=== PATIENT | male | born 1935 | race Native Hawaiian/Other Pacific Islander ===

== ENCOUNTER 2018-05-09 11:24 | Outpatient (CLI) | payer OTHER ==
[2018-05-09 12:35] LABS: PLATELET COUNT 152 K/uL (142-355)
[2018-05-09 13:24] LABS: POTASSIUM 4.6 mmol/L (3.6-5.2)
== END 2018-05-09 19:11 | disposition home or self-care (01) ==
LOC: LABW 11:24
PROVIDERS: Internal Medicine
DX: D64.9 Anemia, unspecified (principal); I10 Essential (primary) hypertension; E11.9 Type 2 diabetes mellitus without complications; E78.00 Pure hypercholesterolemia, unspecified
CPT/HCPCS: 36415; 80053; 80061; 81000; 82043; 82570; 82607; 82728; 82747; 83036; 83540; 83550; 84439; 84443; 85027

== ENCOUNTER 2018-11-15 13:21 | Outpatient (CLI) | payer OTHER ==
[2018-11-15] MEDS ORDERED: VITAMIN D31000 UNIT PO (14:11)
[2018-11-15] MEDS ORDERED: METFTAB PO (14:11)
[2018-11-15] MEDS ORDERED: ELIQUIS5 MG PO (14:12)
[2018-11-15] MEDS ORDERED: CARV12.5 PO (14:12)
[2018-11-15] MEDS ORDERED: ONE DAILY 5050 PLUS PO (14:13)
[2018-11-15] MEDS ORDERED: ZOLOFT25 MG PO (14:14)
[2018-11-15] MEDS ORDERED: FERROUS SULF325 MG PO (14:14)
[2018-11-15] MEDS ORDERED: NITROGLYCERIN0.4 MG SL (14:16)
== END 2018-11-15 13:24 | disposition short-term general hospital (02) ==
LOC: AMB 13:21
DX: R51 Headache (principal); R29.810 Facial weakness; R47.81 Slurred speech
CPT/HCPCS: A0425; A0427

== ENCOUNTER 2018-11-18 16:22 | Inpatient (IN) | payer OTHER ==
[~2018-11-18] VITALS: Ht 182.9 cm; Wt 76.7 kg
[~2018-11-18 16:22] MED LIST: CARV12.5 PO; ELIQUIS5 MG PO; FERROUS SULF325 MG PO; METFTAB PO; NITROGLYCERIN0.4 MG SL; ONE DAILY 5050 PLUS PO; VITAMIN D31000 UNIT PO; ZOLOFT25 MG PO
[2018-11-18 17:03] LABS: PLATELET COUNT 173 K/uL (142-355)
[2018-11-18 17:40] LABS: PARTIAL THROMBOPLASTIN TIME 25.1 SECONDS (24.5-33.6)
[2018-11-18 18:23] VITALS: BP 143/60; TEMP 98.7; Ht 182.9 cm; Wt 76.7 kg
[2018-11-18 20:00] VITALS: BP 137/71; TEMP 98.1
[2018-11-19] VITALS: BP 112/44; TEMP 97.7
[2018-11-19 03:55] VITALS: BP 116/55; TEMP 98.1
[2018-11-19 08:03] VITALS: BP 107/56; TEMP 97.5
[2018-11-19 08:53] LABS: PLATELET COUNT 139 K/uL (142-355)
[2018-11-19 09:10] LABS: POTASSIUM 4.4 mmol/L (3.6-5.2)
[2018-11-19 12:06] VITALS: BP 145/62; TEMP 98.1
[2018-11-19 16:19] VITALS: BP 137/66; TEMP 98.7
[2018-11-19 20:10] VITALS: BP 130/49; TEMP 98
[2018-11-20 00:19] VITALS: BP 135/58; TEMP 98.6
[2018-11-20 04:00] VITALS: BP 135/59; TEMP 99.2
[2018-11-20 05:12] LABS: PLATELET COUNT 143 K/uL (142-355)
[2018-11-20 05:21] LABS: POTASSIUM 4.4 mmol/L (3.6-5.2)
[2018-11-20 07:21] VITALS: BP 127/61; TEMP 97.7
[2018-11-20 12:00] VITALS: BP 143/64; TEMP 98.2
[2018-11-20 16:00] VITALS: BP 142/62; TEMP 98.5
[2018-11-20 20:00] VITALS: BP 127/64; TEMP 98.1
[2018-11-21] VITALS (7 sets, daily range): BP systolic 117–154; BP diastolic 53–70; TEMP 97.3–98.8
[2018-11-22 04:00] VITALS: BP 143/63; TEMP 98
[2018-11-22 08:00] VITALS: BP 156/74; TEMP 98.1
[2018-11-22 12:00] VITALS: BP 147/60; TEMP 98.5
== END 2018-11-22 15:08 | disposition swing bed (61) | DRG 69 ==
LOC: MED/SURG 16:22
PROVIDERS: ADMIT Internal Medicine
DX: G45.8 Other transient cerebral ischemic attacks and related syndromes (principal); G92 Toxic encephalopathy; I48.2 Chronic atrial fibrillation; Z79.01 Long term (current) use of anticoagulants; Z86.73 Personal history of transient ischemic attack (TIA), and cerebral infarction without residual deficits; I11.0 Hypertensive heart disease with heart failure; I50.9 Heart failure, unspecified; E11.9 Type 2 diabetes mellitus without complications; M62.81 Muscle weakness (generalized); R62.7 Adult failure to thrive; R26.89 Other abnormalities of gait and mobility; D50.8 Other iron deficiency anemias; R00.1 Bradycardia, unspecified
CPT/HCPCS: 36415; 80048; 80053; 81000; 85027; 85610; 85730; J1815

== ENCOUNTER 2018-11-22 15:08 | Inpatient (IN) | payer OTHER ==
[~2018-11-22] VITALS: Ht 182.9 cm; Wt 79.8 kg
[2018-11-22 16:27] VITALS: BP 143/58; TEMP 98.7; Ht 182.9 cm; Wt 79.8 kg
[2018-11-22 19:38] VITALS: BP 154/71; TEMP 98.4
[2018-11-23 08:00] VITALS: BP 150/65; TEMP 98.5
[2018-11-23 20:00] VITALS: BP 164/74; TEMP 98.1
[2018-11-24 08:00] VITALS: BP 150/68; TEMP 97.6
[2018-11-24 20:00] VITALS: BP 155/71; TEMP 97.9
[2018-11-25 08:04] VITALS: BP 165/76; TEMP 97.9
[2018-11-25 19:46] VITALS: BP 144/73; TEMP 98
[2018-11-26 08:00] VITALS: BP 136/70; TEMP 97.8
[2018-11-26 19:57] VITALS: BP 152/68; TEMP 98.3
[2018-11-27 08:00] VITALS: BP 145/67; TEMP 98
[2018-11-27 19:32] VITALS: BP 153/72; TEMP 97.9
[2018-11-28 08:00] VITALS: BP 150/70; TEMP 97.3
[2018-11-28 20:00] VITALS: BP 182/74; TEMP 97.9
[2018-11-29 08:00] VITALS: BP 142/69; TEMP 98.1
[2018-11-29 20:00] VITALS: BP 144/69; TEMP 98.1
[2018-11-30 08:00] VITALS: BP 137/70; TEMP 98
[2018-11-30 20:07] VITALS: BP 143/65; TEMP 98.3
[2018-12-01 08:00] VITALS: BP 140/96; TEMP 98
[2018-12-01 19:43] VITALS: BP 108/78; TEMP 97.3
[2018-12-02 08:00] VITALS: BP 145/79; TEMP 98.3
[2018-12-02 20:00] VITALS: BP 129/65; TEMP 98.2
[2018-12-03 08:00] VITALS: BP 147/67; TEMP 98.2
[2018-12-03 20:00] VITALS: BP 143/67; TEMP 98.2
[2018-12-04 08:00] VITALS: BP 134/65; TEMP 98.5
[2018-12-04 20:00] VITALS: BP 141/55; TEMP 98.1
[2018-12-05 08:00] VITALS: BP 149/65; TEMP 98
[2018-12-05 20:00] VITALS: BP 150/47; TEMP 97.9
[2018-12-06 08:00] VITALS: BP 119/52; TEMP 98.4
[2018-12-06 20:00] VITALS: BP 131/59; TEMP 97.8
[2018-12-07 08:00] VITALS: BP 130/51; TEMP 98.3
[2018-12-07 20:01] VITALS: BP 126/51; TEMP 98
[2018-12-08 08:00] VITALS: BP 132/61; TEMP 97.4
[2018-12-08 20:02] VITALS: BP 109/55; TEMP 97.7
[2018-12-09 08:00] VITALS: BP 137/65; TEMP 97.7
[2018-12-09 20:00] VITALS: BP 106/39; TEMP 97.3
[2018-12-10 08:00] VITALS: BP 129/67; TEMP 97.7
== END 2018-12-10 10:20 | disposition home health service (06) | DRG 556 ==
LOC: MED/SURG 15:08
PROVIDERS: ADMIT Internal Medicine
DX: M62.81 Muscle weakness (generalized) (principal); I48.91 Unspecified atrial fibrillation; Z86.73 Personal history of transient ischemic attack (TIA), and cerebral infarction without residual deficits; I10 Essential (primary) hypertension; E11.9 Type 2 diabetes mellitus without complications; I50.9 Heart failure, unspecified; M15.8 Other polyosteoarthritis; D50.8 Other iron deficiency anemias; Z89.512 Acquired absence of left leg below knee; L98.8 Other specified disorders of the skin and subcutaneous tissue; F01.50 Vascular dementia, unspecified severity, without behavioral disturbance, psychotic disturbance, mood disturbance, and anxiety
CPT/HCPCS: 81000; 93005

== ENCOUNTER 2018-12-21 10:17 | Outpatient (CLI) | payer OTHER ==
[2018-12-21 10:35] LABS: PLATELET COUNT 190 K/uL (142-355)
[2018-12-21 10:53] LABS: POTASSIUM 4.5 mmol/L (3.6-5.2)
== END 2018-12-21 22:17 | disposition home or self-care (01) ==
LOC: LAB 10:17
PROVIDERS: Internal Medicine
DX: I11.0 Hypertensive heart disease with heart failure (principal); I50.9 Heart failure, unspecified; E11.69 Type 2 diabetes mellitus with other specified complication
CPT/HCPCS: 80053; 81000; 83036; 84443; 85027

== ENCOUNTER 2019-01-05 12:24 | Emergency (ER) | payer OTHER ==
[~2019-01-05] VITALS: Ht 180.3 cm; Wt 75.3 kg
[2019-01-05 12:24] VITALS: TEMP 98.1
[2019-01-05] MEDS ORDERED: INSU100I2 SC (12:50)
[2019-01-05 13:16] LABS: PLATELET COUNT 171 K/uL (142-355)
[2019-01-05 13:24] LABS: POTASSIUM 4.2 mmol/L (3.6-5.2); SODIUM 136 mmol/L (136-145)
[2019-01-05 14:47] VITALS: BP 153/57
== END 2019-01-05 14:47 | disposition home or self-care (01) ==
LOC: ED 12:24
PROVIDERS: Student in an Organized Health Care Education/Training Program
DX: I48.91 Unspecified atrial fibrillation (principal); I49.3 Ventricular premature depolarization
CPT/HCPCS: 80053; 83735; 84443; 84484; 85027; 85610; 85730; 93005; 99284

== ENCOUNTER 2019-01-06 09:28 | Outpatient (CLI) | payer OTHER ==
[~2019-01-06 09:28] MED LIST changes: +INSU100I2 SC
== END 2019-01-06 23:59 | disposition home or self-care (01) ==
LOC: RESP 09:28
DX: R00.1 Bradycardia, unspecified (principal)
CPT/HCPCS: 93225

== ENCOUNTER 2019-02-01 13:20 | Outpatient (CLI) | payer OTHER ==
[2019-02-01 13:44] LABS: PLATELET COUNT 207 K/uL (142-355)
[2019-02-01 14:03] LABS: POTASSIUM 4.5 mmol/L (3.6-5.2)
== END 2019-02-01 20:09 | disposition home or self-care (01) ==
LOC: LAB 13:20
PROVIDERS: Internal Medicine
DX: R53.1 Weakness (principal); R41.0 Disorientation, unspecified
CPT/HCPCS: 80053; 81000; 85027

== ENCOUNTER 2019-02-15 10:09 | Outpatient (CLI) | payer OTHER ==
[2019-02-15 11:03] LABS: PLATELET COUNT 191 K/uL (142-355)
[2019-02-15 11:28] LABS: POTASSIUM 4.2 mmol/L (3.6-5.2)
== END 2019-02-15 20:30 | disposition home or self-care (01) ==
LOC: LAB 10:09
PROVIDERS: Internal Medicine
DX: E11.9 Type 2 diabetes mellitus without complications (principal); I50.9 Heart failure, unspecified; I11.0 Hypertensive heart disease with heart failure
CPT/HCPCS: 80053; 81000; 83036; 84439; 84443; 85027

== ENCOUNTER 2019-03-02 13:53 | Outpatient (CLI) | payer OTHER ==
[2019-03-02] MEDS ORDERED: HUMALOG KW100 UNIT/M SC (18:34)
== END 2019-03-02 13:55 | disposition short-term general hospital (02) ==
LOC: AMB 13:53
DX: R53.1 Weakness (principal); I48.91 Unspecified atrial fibrillation; R73.9 Hyperglycemia, unspecified; Z86.73 Personal history of transient ischemic attack (TIA), and cerebral infarction without residual deficits
CPT/HCPCS: A0425; A0427

== ENCOUNTER 2019-03-06 10:04 | Outpatient (CLI) | payer OTHER ==
[~2019-03-06 10:04] MED LIST changes: +HUMALOG KW100 UNIT/M SC
== END 2019-03-06 11:20 | disposition short-term general hospital (02) ==
LOC: AMB 10:04
DX: R53.1 Weakness (principal); E86.0 Dehydration
CPT/HCPCS: A0425; A0427